=== PATIENT | female | born 1930 | race Caucasian/White ===

== ENCOUNTER 2017-06-06 10:24 | Inpatient (IN) | payer MEDICARE ==
[~2017-06-06] VITALS: Ht 152.4 cm; Wt 55.0 kg
[2017-06-06] VITALS (12 sets, daily range): BP systolic 90–166; BP diastolic 36–75
--- NOTE | ~2017-06-06 | EKG ---
[place], [place] ELECTROCARDIOGRAM REPORT NAME: KELTON FORTE UNIT #: [id number] ROOM: [facility] DOCTOR: EVELYN DUNCAN,PADILLA BIRTHDATE: [birth year] DOS: 06/06/2017 TIME: 1101 hours. IMPRESSION: 1. Atrial paced rhythm. 2. Right bundle-branch block. 3. ____ hypertrophy. PADILLA RIVAS MD CM:EKGRPT:ELECTROCARDIOGRAM REPORT [id number] PADILLA RIVAS MD
[~2017-06-06 10:24] MED LIST: AMARYL2 MG PO; ATENOLOL25 MG PO; B121000 MCG/1 IM; BACTRIM DS 8001 TA1 PO; BILBERRY PO; COZAAR100 MG PO; GABAPENTIN100 M2 PO; GLUCOS-AMINE500 MG PO; HUMALOG100 U/ML SC; HYDROCODONE BIT1 T11 PO; LANTUS100 U/ML SC; LEVOTHYROXIN0.088 M1 PO; LEVOXYL0.088 MG PO; METFORMIN500 MG PO; MICRONIZED COLES1 GM PO; PERCOCET 325 MG1 TA7 PO; PRAVACHOL40 MG PO; PRAVASTATIN SOD40 MG PO; SMZ-TMP 800 MG-1 TA2 PO; TYLENOL325 M2 PO; VESICARE10 MG PO; VESICARE5 MG PO; VICODIN 500 MG-1 TAB PO; VITAMIN D1000 IU PO; VITAMIN E100 I1 PO
[2017-06-06 10:56] LABS: BASO % 0.4 % (0.0-1.0); EOS # 0.1 10*3/uL (0.0-0.4); EOS % 1.1 % (1.0-4.0); HEMATOCRIT 28.5 % (37.0-47.0); LYMPH # 0.9 10*3/uL (1.3-4.4); LYMPH % 10.2 % (27.0-41.0); MEAN CORPUSCULAR HGB 27.8 pg (27.0-31.0); MEAN CORPUSCULAR HGB CONC 31.6 g/dl (33.0-37.0); MEAN PLATELET VOLUME 9.1 fl (9.6-12.3); MONO % 10.6 % (3.0-9.0); NEUT # 7.1 10*3/uL (2.3-7.9); NEUT % 77.3 % (47.0-73.0); PLATELET COUNT AUTOMATED 208 10*3/uL (130-400); RED BLOOD COUNT 3.24 10*6/uL (4.10-5.10); WHITE BLOOD COUNT 9.2 10*3/uL (4.8-10.8)
[2017-06-06 11:09] LABS: ACT PARTIAL THROMBO TIME 32.7 SECONDS (20.8-31.5); INTERNATIONAL NORM RATIO 1.1 (2.0-3.5)
[2017-06-06 11:12] LABS: ALBUMIN 2.3 gm/dl (3.1-4.5); CREATININE 3.69 mg/dL (0.55-1.02); POTASSIUM 4.8 mmol/L (3.5-5.1); TROPONIN I 0.038 ng/ml (<0.045)
[2017-06-06 12:08] LABS: BILIRUBIN NEGATIVE (NEGATIVE); CLARITY CLOUDY (CLEAR); COLOR YELLOW (YELLOW); GLUCOSE NEGATIVE (NEGATIVE); KETONE TRACE (NEGATIVE)
[2017-06-06 12:09] LABS: BLOOD 3+ (NEGATIVE); LEUKO ESTERASE 2+ (NEGATIVE); NITRITE NEGATIVE (NEGATIVE); SPECIFIC GRAVITY 1.015 (1.005-1.030); UROBILINOGEN 0.2 E.U./dl (0.2-1.0); WBC TNTC wbc/hpf (0-5)
[2017-06-06] MEDS ORDERED: NITROFURANTOIN100 M9 PO (12:45)
[2017-06-06] MEDS ORDERED: LEVEMIR FL100 UNIT/1 SQ (12:47)
[2017-06-06] MEDS ORDERED: MYRBETRIQ50 M1 PO (12:49)
[2017-06-06] MEDS ORDERED: ESCITALOPRAM OX10 MG PO (12:50)
[2017-06-06] MEDS ORDERED: MEMANTINE HCL5 MG PO (12:53)
[2017-06-07] VITALS: BP 98/54
[2017-06-07 06:16] LABS: BASO # 0.1 10*3/uL (0.0-0.1); BASO % 0.9 % (0.0-1.0); EOS # 0.1 10*3/uL (0.0-0.4); EOS % 1.2 % (1.0-4.0); HEMATOCRIT 29.2 % (37.0-47.0); HEMOGLOBIN 8.7 g/dl (12.0-16.0); LYMPH # 0.9 10*3/uL (1.3-4.4); MEAN CELL VOLUME 89.8 fl (81.0-99.0); MEAN CORPUSCULAR HGB 26.8 pg (27.0-31.0); MEAN CORPUSCULAR HGB CONC 29.8 g/dl (33.0-37.0); MEAN PLATELET VOLUME 9.9 fl (9.6-12.3); MONO % 10.6 % (3.0-9.0); NEUT # 7.1 10*3/uL (2.3-7.9); NEUT % 76.8 % (47.0-73.0); PLATELET COUNT AUTOMATED 222 10*3/uL (130-400); RED BLOOD COUNT 3.25 10*6/uL (4.10-5.10); RED CELL DISTRI WIDTH 12.7 % (0-14.5); WHITE BLOOD COUNT 9.2 10*3/uL (4.8-10.8)
[2017-06-07 06:43] LABS: POTASSIUM 4.3 mmol/L (3.5-5.1)
[2017-06-07 07:05] LABS: CREATININE 2.66 mg/dL (0.55-1.02); PHOSPHOROUS 3.7 mg/dL (2.5-4.9); THYROID STIM HORMONE (HS) 0.3 uIU/ml (0.358-4.75)
[2017-06-07 07:45] LABS: VITAMIN D, 25-HYDROXY 7.5 ng/mL (30-100)
[2017-06-07 08:00] VITALS: BP 108/54
[2017-06-07 12:00] VITALS: BP 98/35
[2017-06-07 13:15] VITALS: BP 124/52
[2017-06-07 16:00] VITALS: BP 109/45
[2017-06-07 20:00] VITALS: BP 97/50
[2017-06-08] VITALS: BP 114/48
[2017-06-08 06:31] LABS: BASO # 0.1 10*3/uL (0.0-0.1); BASO % 0.6 % (0.0-1.0); EOS # 0.1 10*3/uL (0.0-0.4); EOS % 1.3 % (1.0-4.0); HEMATOCRIT 30.4 % (37.0-47.0); HEMOGLOBIN 9.2 g/dl (12.0-16.0); LYMPH # 0.8 10*3/uL (1.3-4.4); MEAN CELL VOLUME 90.5 fl (81.0-99.0); MEAN CORPUSCULAR HGB 27.4 pg (27.0-31.0); MEAN CORPUSCULAR HGB CONC 30.3 g/dl (33.0-37.0); MEAN PLATELET VOLUME 9.8 fl (9.6-12.3); MONO % 11.5 % (3.0-9.0); NEUT % 76.9 % (47.0-73.0); PLATELET COUNT AUTOMATED 249 10*3/uL (130-400); RED BLOOD COUNT 3.36 10*6/uL (4.10-5.10); RED CELL DISTRI WIDTH 12.9 % (0-14.5); WHITE BLOOD COUNT 9.1 10*3/uL (4.8-10.8)
[2017-06-08 06:43] LABS: ALBUMIN 2.3 gm/dl (3.1-4.5); CREATININE 1.83 mg/dL (0.55-1.02); POTASSIUM 4.8 mmol/L (3.5-5.1); TOTAL PROTEIN 7.1 gm/dL (6.4-8.2)
[2017-06-08 08:00] VITALS: BP 120/47
[2017-06-08 09:35] LABS: FERRITIN 185.3 ng/mL (10.0-291.0)
[2017-06-08 12:00] VITALS: BP 126/56
[2017-06-08 16:00] VITALS: BP 156/58
[2017-06-08 20:00] VITALS: BP 110/71
[2017-06-09] VITALS: BP 116/62
[2017-06-09 07:00] LABS: BASO % 0.6 % (0.0-1.0); EOS # 0.1 10*3/uL (0.0-0.4); EOS % 1.4 % (1.0-4.0); HEMATOCRIT 25.2 % (37.0-47.0); HEMOGLOBIN 7.8 g/dl (12.0-16.0); LYMPH # 0.9 10*3/uL (1.3-4.4); LYMPH % 14.5 % (27.0-41.0); MEAN CELL VOLUME 88.4 fl (81.0-99.0); MEAN CORPUSCULAR HGB 27.4 pg (27.0-31.0); MEAN PLATELET VOLUME 9.4 fl (9.6-12.3); MONO # 0.9 10*3/uL (0.1-1.0); MONO % 14.2 % (3.0-9.0); NEUT # 4.3 10*3/uL (2.3-7.9); NEUT % 68.8 % (47.0-73.0); PLATELET COUNT AUTOMATED 196 10*3/uL (130-400); RED BLOOD COUNT 2.85 10*6/uL (4.10-5.10); WHITE BLOOD COUNT 6.2 10*3/uL (4.8-10.8)
[2017-06-09 07:22] LABS: CREATININE 1.55 mg/dL (0.55-1.02); POTASSIUM 4.3 mmol/L (3.5-5.1)
[2017-06-09 08:00] VITALS: BP 121/70
[2017-06-09] MEDS ORDERED: VITAMIN D31000 UNI1 PO (09:41)
[2017-06-09] MEDS ORDERED: AMOXICILLIN250 MG PO (09:41)
[2017-06-09] MEDS ORDERED: Vitamin D PO (09:46)
[2017-06-09] MEDS ORDERED: NATURE'S BLEND F1 MG PO (09:46)
[2017-06-09] MEDS ORDERED: FERROUS SULFAT325 MG PO (09:46)
[2017-06-09 12:00] VITALS: BP 150/50
== END 2017-06-09 14:06 | disposition other institution (70) | DRG 682 ==
LOC: ED 10:24 → EDHOLD 12:40 → 5E 12:40
PROVIDERS: Emergency Medicine; Internal Medicine Nephrology; Registered Nurse; Student in an Organized Health Care Education/Training Program
DX: N17.0 Acute kidney failure with tubular necrosis (principal); G93.41 Metabolic encephalopathy; E43 Unspecified severe protein-calorie malnutrition; E11.65 Type 2 diabetes mellitus with hyperglycemia; E11.22 Type 2 diabetes mellitus with diabetic chronic kidney disease; F03.90 Unspecified dementia, unspecified severity, without behavioral disturbance, psychotic disturbance, mood disturbance, and anxiety; E86.0 Dehydration; N39.0 Urinary tract infection, site not specified; E87.1 Hypo-osmolality and hyponatremia; N18.4 Chronic kidney disease, stage 4 (severe); D72.9 Disorder of white blood cells, unspecified; D72.821 Monocytosis (symptomatic); D72.810 Lymphocytopenia; Z51.5 Encounter for palliative care; Z66 Do not resuscitate; N18.9 Chronic kidney disease, unspecified; D50.9 Iron deficiency anemia, unspecified; E03.9 Hypothyroidism, unspecified; I12.9 Hypertensive chronic kidney disease with stage 1 through stage 4 chronic kidney disease, or unspecified chronic kidney disease; N39.41 Urge incontinence; B95.2 Enterococcus as the cause of diseases classified elsewhere; E78.5 Hyperlipidemia, unspecified; E55.9 Vitamin D deficiency, unspecified; Z86.73 Personal history of transient ischemic attack (TIA), and cerebral infarction without residual deficits; Z91.81 History of falling; Z95.0 Presence of cardiac pacemaker; Z90.49 Acquired absence of other specified parts of digestive tract; Z90.710 Acquired absence of both cervix and uterus; Z82.49 Family history of ischemic heart disease and other diseases of the circulatory system; Z83.3 Family history of diabetes mellitus; Z79.899 Other long term (current) drug therapy; Z79.4 Long term (current) use of insulin; Z68.23 Body mass index [BMI] 23.0-23.9, adult

== ENCOUNTER 2017-07-24 16:25 | Emergency (ER) | payer MEDICARE ==
[~2017-07-24] VITALS: Wt 63.5 kg
[~2017-07-24 16:25] MED LIST changes: +AMOXICILLIN250 MG PO; +ESCITALOPRAM OX10 MG PO; +FERROUS SULFAT325 MG PO; +LEVEMIR FL100 UNIT/1 SQ; +MEMANTINE HCL5 MG PO; +MYRBETRIQ50 M1 PO; +NATURE'S BLEND F1 MG PO; +NITROFURANTOIN100 M9 PO; +VITAMIN D31000 UNI1 PO; +Vitamin D PO
== END 2017-07-24 17:53 | disposition home or self-care (01) ==
LOC: ED 16:25
DX: R31.9 Hematuria, unspecified (principal); F03.90 Unspecified dementia, unspecified severity, without behavioral disturbance, psychotic disturbance, mood disturbance, and anxiety; I12.9 Hypertensive chronic kidney disease with stage 1 through stage 4 chronic kidney disease, or unspecified chronic kidney disease; N18.9 Chronic kidney disease, unspecified; E78.5 Hyperlipidemia, unspecified; E03.9 Hypothyroidism, unspecified; E11.65 Type 2 diabetes mellitus with hyperglycemia; Z95.0 Presence of cardiac pacemaker; Z90.49 Acquired absence of other specified parts of digestive tract; Z86.73 Personal history of transient ischemic attack (TIA), and cerebral infarction without residual deficits; Z90.710 Acquired absence of both cervix and uterus; Z79.899 Other long term (current) drug therapy; Z79.4 Long term (current) use of insulin